=== PATIENT | female | born 1990 | race Caucasian/White ===

== ENCOUNTER 2017-11-19 09:42 | Inpatient (IN) | payer OTHER ==
[2017-11-19] MEDS: IV RINGERS,LACTATED 1000ML 1,000 ML IV ×2 (10:58→20:45)
[2017-11-19] MEDS: oxyCODONE/APAP 5/325 1 TAB TABLET PO ×2 (11:47→21:14)
[2017-11-19] MEDS: PANTOPRAZOLE IV PUSH 40 MG VIAL. IVP (14:53)
[2017-11-19] MEDS: IBUPROFEN 800 MG TABLET. PO (15:42)
[2017-11-20] MEDS: IBUPROFEN 800 MG TABLET. PO ×3 (00:07→21:19)
[2017-11-20] MEDS: oxyCODONE/APAP 5/325 1 TAB TABLET PO ×3 (01:29→20:06)
[2017-11-20] MEDS: PANTOPRAZOLE IV PUSH 40 MG VIAL. IVP (07:28)
[2017-11-20] MEDS: ONDANSETRON PF 4 MG/2 ML VIAL. IV ×2 (08:11→18:24)
[2017-11-20] MEDS: IV RINGERS,LACTATED 1000ML 1,000 ML IV (19:52)
[2017-11-20] MEDS: METOCLOPRAMIDE HCL 10 MG/2 ML VIAL. IV (21:19)
[2017-11-21] MEDS: IV RINGERS,LACTATED 1000ML 1,000 ML IV ×4 (04:46→15:30)
[2017-11-21] MEDS ORDERED: MORPHINE SULFATE 2 MG/ML DISP.SYRIN. IV (07:00)
[2017-11-21] MEDS ORDERED: fentaNYL PF VIAL 100 MCG/2 ML VIAL IV (07:00)
[2017-11-21] MEDS ORDERED: LIDOCAINE 1% PF 2 ML VIAL. ID (07:00)
[2017-11-21] MEDS ORDERED: ONDANSETRON PF 4 MG/2 ML VIAL. IV (07:00)
[2017-11-21] MEDS ORDERED: HYDROmorphone 2 MG/ML VIAL IV (07:00)
[2017-11-21] MEDS: oxyCODONE/APAP 5/325 1 TAB TABLET PO ×4 (07:13→23:39)
[2017-11-21] MEDS: PANTOPRAZOLE IV PUSH 40 MG VIAL. IVP (08:28)
[2017-11-21] MEDS ORDERED: LIDOCAINE 1% PF 5 ML VIAL. (09:35)
[2017-11-21] MEDS ORDERED: PROPOFOL 20 ML IV (09:35)
[2017-11-21] MEDS ORDERED: FAMOTIDINE 20 MG/2 ML VIAL (09:35)
[2017-11-21] MEDS ORDERED: DEXAMETHASONE SOD PHOS 20 MG/5 ML VIAL. (09:35)
[2017-11-21] MEDS ORDERED: ONDANSETRON PF 4 MG/2 ML VIAL. (09:35)
[2017-11-21] MEDS ORDERED: ROCURONIUM 50 MG/5 ML VIAL. (09:36)
[2017-11-21] MEDS ORDERED: SUCCINYLCHOLINE 200 MG/10 ML VIAL. (09:36)
[2017-11-21] MEDS ORDERED: fentaNYL PF VIAL 100 MCG/2 ML VIAL ×2 (09:36→11:18)
[2017-11-21] MEDS ORDERED: PHENYLEPHRINE 10 MG/ML VIAL. (10:48)
[2017-11-21] MEDS ORDERED: NEOSTIGMINE 10 MG/10 ML VIAL. (10:49)
[2017-11-21] MEDS: BUPIVACAINE-EPI 0.25%-1:200000 50 ML VIAL. (10:49)
[2017-11-21] MEDS ORDERED: GLYCOPYRROLATE 1 MG/5 ML VIAL. (10:50)
[2017-11-21] MEDS: fentaNYL PF VIAL 100 MCG/2 ML VIAL IV ×2 (11:53→12:16)
[2017-11-21] MEDS: ONDANSETRON PF 4 MG/2 ML VIAL. IV (13:42)
[2017-11-21] MEDS: METOCLOPRAMIDE HCL 10 MG/2 ML VIAL. IV (15:58)
[2017-11-21] MEDS: IBUPROFEN 800 MG TABLET. PO (21:57)
[2017-11-22] MEDS: IBUPROFEN 800 MG TABLET. PO (06:15)
[2017-11-22] MEDS: oxyCODONE/APAP 5/325 1 TAB TABLET PO ×2 (07:35→12:23)
== END 2017-11-22 13:05 | disposition home or self-care (01) | DRG 781 ==
LOC: 3 NORTH 09:42
PROC: 0FT44ZZ Resection of Gallbladder, Percutaneous Endoscopic Approach (ICD-10-PCS; principal; 2017-11-21 10:30)
DX: O99.611 Diseases of the digestive system complicating pregnancy, first trimester (principal); K80.00 Calculus of gallbladder with acute cholecystitis without obstruction; Z3A.01 Less than 8 weeks gestation of pregnancy
CPT/HCPCS: 76815; 88304; C9113; J0330; J0690; J1100; J2405; J2704; J2710; J2765; J3010; J3490; J7030; J7120; S0028

== ENCOUNTER → 2018-02-12 | Outpatient (CLI) | payer OTHER | END | disposition home or self-care (01) | LOC: US 06:40 | DX: O44.02 Complete placenta previa NOS or without hemorrhage, second trimester (principal); Z3A.21 21 weeks gestation of pregnancy | CPT/HCPCS: 76805 ==

== ENCOUNTER 2018-03-16 02:47 | Observation (INO) | payer OTHER ==
[2018-03-16] MEDS ORDERED: 0.9 % SODIUM CHLORIDE 10 ML DISP.SYRIN. IV (03:00)
[2018-03-16 03:26] LABS: BILIRUBIN,URINE NEGATIVE (NEG); CLARITY,URINE CLEAR; COLOR,URINE YELLOW; GLUCOSE,URINE NEGATIVE (NEG); NITRITE,URINE NEGATIVE (NEG); PROTEIN,URINE NEGATIVE (NEG-TRACE); UROBILINOGEN,URINE 0.2 mg/dL (0.2 mg/dL)
[2018-03-16 03:31] LABS: BARBITURATES NEG (NEG); BENZODIAZEPINES NEG (NEG); CANNABINOIDS NEG (NEG); COCAINE NEG (NEG); METHADONE NEG (NEG); OPIATES NEG (NEG); PHENCYCLIDINE NEG (NEG)
[2018-03-16 03:32] LABS: AMPHETAMINE/METHAMPHETAMINE NEG (NEG); ETHANOL, URINE NEG (NEG)
[2018-03-16 03:34] LABS: BACTERIA,URINE FEW /HPF (0-FEW); RBC,URINE 0 /HPF (0-2); SQUAMOUS EPITHELIAL CELL,UR FEW /LPF
== END 2018-03-16 04:22 | disposition home or self-care (01) ==
LOC: 3 SO LND 02:47
DX: O26.892 Other specified pregnancy related conditions, second trimester (principal); R10.9 Unspecified abdominal pain; Z79.899 Other long term (current) drug therapy; Z3A.24 24 weeks gestation of pregnancy
CPT/HCPCS: 80307; 81001; G0378; G0379

== ENCOUNTER → 2018-04-03 | Outpatient (CLI) | payer OTHER ==
[2018-04-03 11:20] LABS: ADD MAN DIFF? NO
[2018-04-03 11:38] LABS: GLUCOSE 75 mg/dL (70-99)
[2018-04-03 11:43] LABS: BASO % 0 % (0-3); EOS # 0.1 x10^3/uL (0.0-0.7); EOS % 1 % (0-3); HEMATOCRIT 36.5 % (36.0-47.0); HEMOGLOBIN 12.9 g/dL (12.0-15.5); LYMPH # 2.4 x10^3/uL (1.0-4.8); LYMPH % 25 % (24-48); MEAN CORPUSCULAR HEMOGLOBIN 33 pg (25-35); MEAN CORPUSCULAR HGB CONC 35 g/dL (31-37); MEAN CORPUSCULAR VOLUME 93 fL (79-100); MONO # 0.6 x10^3/uL (0.0-1.1); MONO % 7 % (0-9); NEUT # 6.3 x10^3uL (1.8-7.7); NEUT % 67 % (31-73); PLATELET COUNT 183 x10^3/uL (140-400); RED BLOOD COUNT 3.92 x10^6/uL (3.50-5.40); RED CELL DISTRIBUTION WIDTH 12.7 % (11.5-14.5); WHITE BLOOD COUNT 9.4 x10^3/uL (4.0-11.0)
[2018-04-03 13:19] LABS: SECOND ABO/RH TYPE 1 1
== END | disposition home or self-care (01) ==
LOC: LAB 11:04
DX: O09.92 Supervision of high risk pregnancy, unspecified, second trimester (principal); Z3A.28 28 weeks gestation of pregnancy
CPT/HCPCS: 36415; 82947; 82950; 85025; 86850; 86900; 86901; J2791

== ENCOUNTER → 2018-04-17 | Outpatient (CLI) | payer OTHER ==
[2017-11-22 12:55] VITALS: BP 109/68
--- NOTE | 2018-04-17 13:16 | KCIC ---
OB ULTRASOUND, limited Clinical Indication: Placenta previa on prior study. Comparison: Obstetric ultrasound, greater than 14 weeks February 12, 2018. Technique: Multiple grayscale images, color Doppler, and M-mode images of the uterus are obtained. Findings: There is a single intrauterine gestation in transverse presentation. The placenta is anterior in location. The edge of the placenta is less than a centimeter from the internal cervical os. The amount of amniotic fluid appears appropriate. Amniotic fluid index is 10.8 cm. Cervical length is 3.8 cm. Biometrical data: BPD = 7.3 cm for 29 weeks 3 days. HC = 26.2 cm for 28 weeks 3 days. AC = 24.5 cm for 28 weeks 5 days. FL = 5.4 cm for 28 weeks 4 days. HC/AC ratio = 1.07. Overall, the estimated sonographic gestational age is 28 weeks and 6 days for an estimated date of delivery of July 04, 2018. The estimated date of delivery provided by the last ultrasound is 07/07/2018. Estimated weight is 1272 grams. The estimated heart rate is 135 beats per minute. A anatomic survey is not performed due to advanced gestational age. Impression: 1. Single live intrauterine gestation with estimated sonographic gestational age of 28 weeks and 6 days. 2. The placenta is at least low-lying. Recommend transvaginal scanning for more definitive evaluation. Electronically signed by: Oswaldo Lamb MD (04/17/2018 1:13 PM) [id number]
== END | disposition home or self-care (01) ==
LOC: KCIC US 10:04
PROVIDERS: ATTEND Physician Assistant Medical
DX: Z36.89 Encounter for other specified antenatal screening (principal); Z3A.28 28 weeks gestation of pregnancy
CPT/HCPCS: 76815

== ENCOUNTER 2018-04-22 15:26 | Observation (INO) | payer OTHER ==
[2017-11-22 12:55] VITALS: BP 109/68
[2018-04-22 15:52] LABS: BILIRUBIN,URINE NEGATIVE (NEG); CLARITY,URINE CLEAR; NITRITE,URINE NEGATIVE (NEG); PH,URINE 7.5; PROTEIN,URINE NEGATIVE (NEG-TRACE); UROBILINOGEN,URINE 0.2 mg/dL (0.2 mg/dL)
[2018-04-22 15:59] LABS: COLOR,URINE STRAW
[2018-04-22 16:00] LABS: RBC,URINE 0 /HPF (0-2)
[2018-04-22 16:01] LABS: BACTERIA,URINE 0 /HPF (0-FEW); SQUAMOUS EPITHELIAL CELL,UR FEW /LPF; WBC,URINE 0 /HPF (0-4)
== END 2018-04-22 16:52 | disposition home or self-care (01) ==
LOC: 3 SO LND 15:26
PROVIDERS: ADMIT Obstetrics & Gynecology; ATTEND Obstetrics & Gynecology
DX: O36.8130 Decreased fetal movements, third trimester, not applicable or unspecified (principal); O26.893 Other specified pregnancy related conditions, third trimester; R10.9 Unspecified abdominal pain; Z3A.29 29 weeks gestation of pregnancy
CPT/HCPCS: 81001; G0378; G0379

== ENCOUNTER 2018-06-04 04:15 | Inpatient (IN) | payer OTHER ==
[~2018-06-04] VITALS: Ht 170.2 cm; Wt 63.5 kg
[2018-06-04] MEDS ORDERED: IV RINGERS,LACTATED 1000ML 1,000 ML IV PRN (04:30)
[2018-06-04] MEDS ORDERED: ACETAMINOPHEN 325 MG TABLET. PO PRN (04:30)
--- NOTE | 2018-06-04 04:38 | PDOC1 ---
OB - History Hx of Present Care: Good Care Ultrasounds: Abnormal US findings (Marginal previa) Medical Complications: None Past Family/Social History * Past Medical, Surgical, Family and Obstetric Histories reviewed from chart. Blood Type: Unknown Rubella: Immune RPR/VDRL: Negative GBS Status: Unknown HBsAG: Negative OB - Chief Complaint & HPI Date of Admission: Date of Admission: Jun 04, 2018 at 04:15 Chief Complaint/History : 7 EDC: Jul 07, 2018 Reason for admission: active labor, labor, rupture of membranes Indication for : other (marginal previa) Admission Nurse Assessment Rev: Yes OB - Admission Exam Physical Exam HEENT: Normal, Nasal Mucosa Normal, Oropharynx Normal, Moist Membranes, Fontanelles Normal Heart: Regular Rate Lungs: Clear Abdomen: Gravid Extremities: Normal Pulses, No tenderness or swelling Effacement: 0% Membranes: Ruptured Heart Rate: Normal Accelerations: Accelerations Present Decelerations: No decelerations Short Term Variability: Present Contractions on Admission: 6-10 Minutes Apart Intensity: Moderate Assessment/Plan Assessment/Plan 35/2 week Marginal previa PPROM Bleeding C/S EMILIANO NEIL MD Jun 04, 2018 04:38
[2018-06-04] MEDS ORDERED: ONDANSETRON PF 4 MG/2 ML VIAL. IV PRN ×2 (04:45→06:00)
[2018-06-04] MEDS ORDERED: SIMETHICONE 80 MG TAB.CHEW PO PRN ×2 (04:45→06:00)
[2018-06-04] MEDS ORDERED: oxyCODONE/APAP 5/325 1 TAB TABLET PO PRN ×2 (04:45)
[2018-06-04] MEDS ORDERED: MMR per PROTOCOL. MC PRN (04:45)
[2018-06-04] MEDS ORDERED: MAG HYDROX/ALUMINUM HYD/SIMETH 30 ML ORAL.SUSP PO PRN ×2 (04:45→06:00)
[2018-06-04] MEDS ORDERED: ZOLPIDEM 5 MG TABLET. PO PRN ×2 (04:45→06:00)
[2018-06-04] MEDS ORDERED: diphenhydrAMINE ORAL ELIXIR 12.5 MG/5 ML ML PO PRN ×2 (04:45→06:00)
[2018-06-04] MEDS ORDERED: OXYTOCIN 30 UNIT/500 ML PREMIX 500 ML IV PRN ×2 (04:45→06:00)
[2018-06-04] MEDS ORDERED: DOCUSATE SODIUM 100 MG CAPSULE. PO PRN (04:45)
[2018-06-04 04:57] LABS: HEMATOCRIT 34.3 % (36.0-47.0); HEMOGLOBIN 12.2 g/dL (12.0-15.5); RED BLOOD COUNT 3.82 x10^6/uL (3.50-5.40); RED CELL DISTRIBUTION WIDTH 13.2 % (11.5-14.5); WHITE BLOOD COUNT 10.4 x10^3/uL (4.0-11.0)
[2018-06-04] MEDS ORDERED: 0.9 % SODIUM CHLORIDE 10 ML DISP.SYRIN. IV PRN ×2 (05:00→06:00)
[2018-06-04] MEDS ORDERED: ceFAZolin 2GM PREMIX 2 GM/50 ML BAG IV ONE (05:00)
--- NOTE | 2018-06-04 05:46 | PDOC4 ---
OB Operative Note Date: Jun 04, 2018 PRE OP DIAGNOSIS: Other (Partial Placenta Previa with PPROM and bleeding at 35 wks) POST OP DIAGNOSIS: Other (Same + complete previa) OPERATION PERFORMED: Durga [facility] Surgeon Dr. Campos [employer] Administrator Dr. Bonds Anesthesia: Gen Blood Loss 1, 000 ml Specimen placenta and OB Findings: Position (Transverse), Sex (Male), (8/9), Weight (6 Lb 6 oz. ), Fluid (Clear), Urgency (Emergent) Complications complete placenta previa Additional Remarks pt. MERY Velasquez Jr, MD Jun 04, 2018 05:46
[2018-06-04] MEDS ORDERED: MORPHINE SULFATE 10 MG/ML VIAL. ONE ×2 (05:47→06:00)
[2018-06-04] MEDS ORDERED: FAMOTIDINE 20 MG/2 ML VIAL ONE (05:49)
[2018-06-04] MEDS ORDERED: OXYTOCIN 10 UNIT/ML VIAL. ONE (05:49)
[2018-06-04] MEDS ORDERED: ONDANSETRON PF 4 MG/2 ML VIAL. ONE (05:49)
[2018-06-04] MEDS ORDERED: fentaNYL PF VIAL 100 MCG/2 ML VIAL ONE (05:49)
[2018-06-04] MEDS: IV RINGERS,LACTATED 1000ML 1,000 ML IV SCH ×3 (05:57→21:15)
[2018-06-04] MEDS ORDERED: KETOROLAC 30 MG/ML VIAL. IV PRN (06:00)
[2018-06-04] MEDS: IBUPROFEN 800 MG TABLET. PO SCH ×3 (06:00→22:39)
[2018-06-04] MEDS ORDERED: IBUPROFEN 800 MG TABLET. PO PRN (06:00)
[2018-06-04 08:00] VITALS: BP 107/68
[2018-06-04] MEDS: FERROUS SULFATE 325 MG TABLET. PO SCH ×2 (08:00→17:00)
[2018-06-04] MEDS ORDERED: FERROUS SULFATE 325 MG TABLET. PO SCH (08:00)
[2018-06-04 08:30] VITALS: BP 106/66
[2018-06-04 09:00] VITALS: BP 104/64
[2018-06-04] MEDS: METHYLERGONOVINE MALEATE 0.2 MG TABLET PO SCH ×3 (09:00→22:38)
--- NOTE | 2018-06-04 09:38 | OP ---
DATE OF SURGERY: 06/04/2018 Operative Note PREOPERATIVE DIAGNOSES: 1. A 35 weeks' intrauterine . 2. premature rupture of membranes. 3. Partial placenta previa. POSTOPERATIVE DIAGNOSES: 1. A 35 weeks' intrauterine . 2. premature rupture of membranes. 3. Complete placenta previa. PROCEDURE: Primary low transverse section. SURGEON: Mery Campos MD DRILLING CONTRACTOR: Kevon Bonds MD ANESTHESIA: GETA. ESTIMATED BLOOD LOSS: 1000 mL. COMPLICATIONS: Complete placenta previa. FINDINGS: Viable male infant, Apgars 8 and 9, weight 6 pounds 6 ounces. Three-vessel cord placenta, nuchal cord times 1. There was complete placenta previa. SUMMARY: A 27-year-old 3, para 2 at 35 weeks, presented with leaking of fluid and vaginal bleeding. The patient was found to have ruptured membranes and due to the placenta partial previa and prior section, she was counseled on risks, benefits and expectations of the emergent section and voiced a clear understanding to proceed. DESCRIPTION OF PROCEDURE: The patient was taken to surgery suite and placed in dorsal supine position. She was prepped with ChloraPrep and draped in a sterile fashion. After adequate anesthesia, a Pfannenstiel skin incision was made with scalpel down to and through the fascia. Fascia was extended laterally using blunt dissection. The abdominal rectus muscle dissected bluntly at the midline. The peritoneum was dissected bluntly at the midline as well. The Gerald ring retractor was placed. Low transverse hysterotomy incision was made with scalpel down to the amniotic sac. The hysterotomy incision extended laterally and superiorly. Amniotomy was performed bluntly. Placenta was anterior and extended all the way past the cervical os. The was transverse, rotated internally. With the aid of fundal pressure, the infant's head was delivered in a smooth atraumatic manner. With additional fundal pressure, the anterior shoulder was delivered by followed by posterior shoulder. Rest of the male was delivered. cord times 1 was reduced. was suctioned with bulb syringe orally and nasally. Umbilical was clamped twice and cut and viable male infant was handed to waiting nursing staff. Umbilical cord blood was obtained. Three-vessel cord placenta was delivered intact. Uterus exteriorized, cleared of clot and debris with a moist lap. Hysterotomy incision was reapproximated using 1-0 Vicryl suture in running locked fashion. Uterus palpated firm. Fallopian tubes and ovaries appeared normal bilaterally. Posterior cul-de-sac was cleared of clot and debris with a moist lap. The uterus was then returned to the abdomen. Pericolic gutters were cleared of clot and debris with a moist lap. Hysterotomy incision was reviewed and was hemostatic. Interceed was placed over the hysterotomy incision in inverted T fashion. The Gerald ring retractor was removed. The peritoneum was reapproximated using 1-0 Vicryl suture in a running fashion. Muscles were approximated abdominal rectus muscle reapproximated using a 1-0 Vicryl suture and mattress stitch. The fascia was reapproximated using 0 Vicryl suture in running fashion. Skin was reapproximated using 4-0 Vicryl suture in subcuticular manner. The patient tolerated the procedure well and was sent to recovery room in stable condition. Sponge and needle count correct times 3. MERY CAMPOS MD DR: DORIS/leticia JOB#: [id number] / [id number]
[2018-06-04 10:05] VITALS: BP 103/66
[2018-06-04] MEDS: ceFAZolin SODIUM 1 GM in IV DEXTROSE 5% 50 ML IV SCH ×2 (13:00→21:00)
[2018-06-04 13:10] VITALS: BP 102/64
[2018-06-04 19:35] VITALS: BP 108/69
[2018-06-05 00:03] VITALS: BP 99/65
[2018-06-05] MEDS: IV RINGERS,LACTATED 1000ML 1,000 ML IV SCH (05:00)
[2018-06-05 05:50] LABS: BASO # 0.1 x10^3/uL (0.0-0.2); BASO % 1 % (0-3); EOS # 0.1 x10^3/uL (0.0-0.7); EOS % 1 % (0-3); HEMATOCRIT 30.3 % (36.0-47.0); HEMOGLOBIN 10.6 g/dL (12.0-15.5); LYMPH % 20 % (24-48); MEAN CORPUSCULAR HEMOGLOBIN 32 pg (25-35); MEAN CORPUSCULAR HGB CONC 35 g/dL (31-37); MEAN CORPUSCULAR VOLUME 91 fL (79-100); MONO # 0.9 x10^3/uL (0.0-1.1); MONO % 9 % (0-9); NEUT # 7.1 x10^3uL (1.8-7.7); NEUT % 70 % (31-73); PLATELET COUNT 126 x10^3/uL (140-400); RED BLOOD COUNT 3.34 x10^6/uL (3.50-5.40); RED CELL DISTRIBUTION WIDTH 13.2 % (11.5-14.5); WHITE BLOOD COUNT 10.1 x10^3/uL (4.0-11.0)
[2018-06-05 06:15] VITALS: BP 108/73
[2018-06-05] MEDS: IBUPROFEN 800 MG TABLET. PO SCH ×3 (06:25→21:58)
[2018-06-05] MEDS: METHYLERGONOVINE MALEATE 0.2 MG TABLET PO SCH ×2 (09:44→14:00)
[2018-06-05 11:20] VITALS: BP 107/71
[2018-06-05] MEDS: oxyCODONE/APAP 5/325 1 TAB TABLET PO PRN ×3 (11:28→21:59)
[2018-06-05] MEDS: MAGNESIUM HYDROXIDE 2,400 MG/30 ML ORAL.SUSP. PO PRN (11:29)
--- NOTE | 2018-06-05 12:58 | PDOC ---
OB Progress Note Date of Service 06/05/18 Time of Evaluation 1255 Notes Pt. feeling well. Pain controlled. Lab Laboratory Tests Test 06/04/18 04:00 06/04/18 04:45 06/05/18 05:05 Treponema pallidum Antibody Nonreactive (Nonreactive) White Blood Count 10.4 x10^3/uL (4.0-11.0) 10.1 x10^3/uL (4.0-11.0) Red Blood Count 3.82 x10^6/uL (3.50-5.40) 3.34 x10^6/uL (3.50-5.40) Hemoglobin 12.2 g/dL (12.0-15.5) 10.6 g/dL (12.0-15.5) Hematocrit 34.3 % (36.0-47.0) 30.3 % (36.0-47.0) Mean Corpuscular Volume 90 fL (79-100) 91 fL (79-100) Mean Corpuscular Hemoglobin 32 pg (25-35) 32 pg (25-35) Mean Corpuscular Hemoglobin Concent 36 g/dL (31-37) 35 g/dL (31-37) Red Cell Distribution Width 13.2 % (11.5-14.5) 13.2 % (11.5-14.5) Platelet Count 161 x10^3/uL (140-400) 126 x10^3/uL (140-400) Neutrophils (%) (Auto) 70 % (31-73) Lymphocytes (%) (Auto) 20 % (24-48) Monocytes (%) (Auto) 9 % (0-9) Eosinophils (%) (Auto) 1 % (0-3) Basophils (%) (Auto) 1 % (0-3) Neutrophils # (Auto) 7.1 x10^3uL (1.8-7.7) Lymphocytes # (Auto) 2.0 x10^3/uL (1.0-4.8) Monocytes # (Auto) 0.9 x10^3/uL (0.0-1.1) Eosinophils # (Auto) 0.1 x10^3/uL (0.0-0.7) Basophils # (Auto) 0.1 x10^3/uL (0.0-0.2) Laboratory Tests Test 06/05/18 05:05 White Blood Count 10.1 x10^3/uL (4.0-11.0) Red Blood Count 3.34 x10^6/uL (3.50-5.40) Hemoglobin 10.6 g/dL (12.0-15.5) Hematocrit 30.3 % (36.0-47.0) Mean Corpuscular Volume 91 fL (79-100) Mean Corpuscular Hemoglobin 32 pg (25-35) Mean Corpuscular Hemoglobin Concent 35 g/dL (31-37) Red Cell Distribution Width 13.2 % (11.5-14.5) Platelet Count 126 x10^3/uL (140-400) Neutrophils (%) (Auto) 70 % (31-73) Lymphocytes (%) (Auto) 20 % (24-48) Monocytes (%) (Auto) 9 % (0-9) Eosinophils (%) (Auto) 1 % (0-3) Basophils (%) (Auto) 1 % (0-3) Neutrophils # (Auto) 7.1 x10^3uL (1.8-7.7) Lymphocytes # (Auto) 2.0 x10^3/uL (1.0-4.8) Monocytes # (Auto) 0.9 x10^3/uL (0.0-1.1) Eosinophils # (Auto) 0.1 x10^3/uL (0.0-0.7) Basophils # (Auto) 0.1 x10^3/uL (0.0-0.2) Medications Current Medications Sodium Chloride (Normal Saline Flush) 3 ml QSHIFT PRN IV AFTER MEDS AND BLOOD DRAWS; Start 06/04/18 at 05:00; Stop 06/04/18 at 06:22; Status DC Oxytocin/Sodium Chloride 500 ml @ 125 mls/hr CONT PRN IV EXCESSIVE POST- BLEEDING; Start 06/04/18 at 04:45; Stop 06/04/18 at 06:23; Status DC Ibuprofen (Motrin) 800 mg Q8HRS PO Last administered on 06/05/18at 06:25; Start 06/04/18 at 06:00 Ondansetron HCl (Zofran) 4 mg PRN Q6HRS PRN IV NAUSEA/VOMITING; Start 06/04/18 at 04:45; Stop 06/04/18 at 06:23; Status DC Docusate Sodium (Colace) 100 mg PRN BID PRN PO HARD STOOLS; Start 06/04/18 at 04:45; Stop 06/04/18 at 06:21; Status DC Magnesium Hydroxide (Milk Of Magnesia) 2,400 mg PRN DAILY PRN PO CONSTIPATION Last administered on 06/05/18at 11:29; Start 06/04/18 at 04:45 Al Hydroxide/Mg Hydroxide (Mylanta Plus Xs) 30 ml PRN Q4HRS PRN PO HEARTBURN / GAS; Start 06/04/18 at 04:45; Stop 06/04/18 at 06:22; Status DC Simethicone (Gas-X) 80 mg PRN AFTMEALHC PRN PO GAS / BLOATING; Start 06/04/18 at 04:45; Status Cancel Diphenhydramine HCl (Benadryl Oral Elixir) 12.5 mg PRN Q6HRS PRN PO ITCHING; Start 06/04/18 at 04:45; Status Cancel Ferrous Sulfate (Feosol) 325 mg BIDWMEALS PO ; Start 06/04/18 at 08:00; Stop at 08:00; Status DC Zolpidem Tartrate (Ambien) 5 mg PRN QHS PRN PO INSOMNIA, MAY REPEAT X1; Start 06/04/18 at 04:45; Stop 06/04/18 at 06:23; Status DC Info (Do NOT chart on this placeholder) 1 ea PRN 1X PRN MC SEE COMMENTS; Start 06/04/18 at 04:45 Info (Do NOT chart on this placeholder) 1 ea PRN 1X PRN MC SEE COMMENTS; Start 06/04/18 at 04:45 Oxycodone/ Acetaminophen (Percocet 5/325) 1 tab PRN Q4HRS PRN PO MILD PAIN; Start 06/04/18 at 04:45 Oxycodone/ Acetaminophen (Percocet 5/325) 2 tab PRN Q4HRS PRN PO MODERATE PAIN , SEVERE PAIN; Start 06/04/18 at 04:45; Stop 06/04/18 at 06:22; Status DC Cefazolin Sodium 1 gm/Dextrose 50 ml @ 100 mls/hr Q8H IV ; Start 06/04/18 at 13 :00; Stop 06/04/18 at 22:50; Status DC Ringer's Solution 1,000 ml @ 1,000 mls/hr Q1H PRN IV hydration; Start 06/04/18 at 04:30 Ringer's Solution 1,000 ml @ 125 mls/hr Q8H IV Last administered on 06/04/18at 21:15; Start 06/04/18 at 05:00 Cefazolin Sodium/ Dextrose 50 ml @ 100 mls/hr 1X ONCE IV ; Start 06/04/18 at 05:00; Stop 06/04/18 at 05:29; Status DC Acetaminophen (Tylenol) 650 mg 1X PRN PRN PO PRE-TRANSFUSION; Start 06/04/18 at 04:30 Morphine Sulfate (Morphine Sulfate) 10 mg STK-MED ONCE .ROUTE ; Start 06/04/18 at 05:47; Stop 06/04/18 at 05:48; Status DC Sodium Chloride (Normal Saline Flush) 3 ml QSHIFT PRN IV AFTER MEDS AND BLOOD DRAWS; Start 06/04/18 at 06:00 Oxytocin/Sodium Chloride 500 ml @ 125 mls/hr CONT PRN IV EXCESSIVE POST- BLEEDING Last administered on 06/04/18at 06:24; Start 06/04/18 at 06:00; Stop 06/04/18 at 13:59; Status DC Ibuprofen (Motrin) 800 mg PRN Q8HRS PRN PO INFLAMMATION; Start 06/04/18 at 06: 00 Ondansetron HCl (Zofran) 4 mg PRN Q6HRS PRN IV NAUSEA/VOMITING Last administered on 06/04/18at 12:59; Start 06/04/18 at 06:00 Docusate Sodium (Colace) 100 mg PRN BID PRN PO HARD STOOLS; Start 06/04/18 at 06:00 Al Hydroxide/Mg Hydroxide (Mylanta Plus Xs) 30 ml PRN Q4HRS PRN PO HEARTBURN / GAS; Start 06/04/18 at 06:00 Simethicone (Gas-X) 80 mg PRN AFTMEALHC PRN PO GAS / BLOATING; Start 06/04/18 at 06:00 Diphenhydramine HCl (Benadryl Oral Elixir) 12.5 mg PRN Q6HRS PRN PO ITCHING; Start 06/04/18 at 06:00 Ferrous Sulfate (Feosol) 325 mg BIDWMEALS PO ; Start 06/04/18 at 08:00; Stop at 05:59; Status DC Zolpidem Tartrate (Ambien) 5 mg PRN QHS PRN PO INSOMNIA, MAY REPEAT X1; Start 06/04/18 at 06:00 Oxycodone/ Acetaminophen (Percocet 5/325) 2 tab PRN Q4HRS PRN PO MODERATE PAIN , SEVERE PAIN Last administered on 06/05/18at 11:28; Start 06/04/18 at 06:00 Ketorolac Tromethamine (Toradol 30mg Vial) 30 mg PRN Q6HRS PRN IV PAIN; Start 06/04/18 at 06:00; Stop 06/09/18 at 05:59 Hydromorphone HCl 30 ml @ 0 mls/hr CONT PRN PRN IV PAIN Last administered on at 07:32; Start 06/04/18 at 06:00 Methylergonovine Maleate (Methergine) 0.2 mg TID PO Last administered on at 09:44; Start 06/04/18 at 09:00; Stop 06/06/18 at 08:59 Famotidine (Pepcid Vial) 20 mg STK-MED ONCE .ROUTE ; Start 06/04/18 at 05:49; Stop 06/04/18 at 05:50; Status DC Ondansetron HCl (Zofran) 4 mg STK-MED ONCE .ROUTE ; Start 06/04/18 at 05:49; Stop 06/04/18 at 05:50; Status DC Oxytocin (Pitocin) 10 unit STK-MED ONCE .ROUTE ; Start 06/04/18 at 05:49; Stop 06/04/18 at 05:50; Status DC Fentanyl Citrate (Fentanyl 2ml Vial) 100 mcg STK-MED ONCE .ROUTE ; Start at 05:49; Stop 06/04/18 at 05:50; Status DC Morphine Sulfate (Morphine Sulfate) 10 mg STK-MED ONCE .ROUTE ; Start 06/04/18 at 06:00; Stop 06/04/18 at 09:02; Status DC Cefazolin Sodium/ Dextrose (Ancef 2gm Premix) 2 gm STK-MED ONCE IV ; Start 06/04 at 05:00; Stop 06/04/18 at 09:04; Status DC Exam Abd: soft, mild tenderness, fundus firm Incision site: clean, dry and intact Assessment POD#1 s/p c/s Plan of Care: Continue current Tx, Mgmt MERY BONNER Jr, MD Jun 05, 2018 12:58
[2018-06-05 15:39] VITALS: BP 121/78
[2018-06-05] MEDS ORDERED: BISACODYL 10 MG SUPP.RECT. PR PRN (18:15)
[2018-06-05] MEDS ORDERED: DIPHTH,PERTUSS(ACELL),TET TOX 0.5 ML DISP.SYRIN. VAX IM ONE (18:30)
[2018-06-05 20:10] VITALS: BP 100/66
[2018-06-05] MEDS: DOCUSATE SODIUM 100 MG CAPSULE. PO PRN (21:58)
[2018-06-06] MEDS: METHYLERGONOVINE MALEATE 0.2 MG TABLET PO SCH (00:10)
[2018-06-06] MEDS: IBUPROFEN 800 MG TABLET. PO SCH ×2 (05:50→15:13)
[2018-06-06] MEDS: MAGNESIUM HYDROXIDE 2,400 MG/30 ML ORAL.SUSP. PO PRN (05:50)
[2018-06-06] MEDS: DOCUSATE SODIUM 100 MG CAPSULE. PO PRN ×2 (05:50→19:38)
[2018-06-06] MEDS: oxyCODONE/APAP 5/325 1 TAB TABLET PO PRN ×4 (05:51→19:39)
[2018-06-06 06:09] VITALS: BP 113/70
[2018-06-06 10:14] VITALS: BP 100/69
[2018-06-06 15:30] VITALS: BP 107/73
--- NOTE | 2018-06-06 17:16 | PDOC ---
OB Progress Note Date of Service 06/06/18 Time of Evaluation 1705 Notes Pt. feeling well. Pt. reports good pain control. Lab Laboratory Tests Test 06/05/18 05:05 White Blood Count 10.1 x10^3/uL (4.0-11.0) Red Blood Count 3.34 x10^6/uL (3.50-5.40) Hemoglobin 10.6 g/dL (12.0-15.5) Hematocrit 30.3 % (36.0-47.0) Mean Corpuscular Volume 91 fL (79-100) Mean Corpuscular Hemoglobin 32 pg (25-35) Mean Corpuscular Hemoglobin Concent 35 g/dL (31-37) Red Cell Distribution Width 13.2 % (11.5-14.5) Platelet Count 126 x10^3/uL (140-400) Neutrophils (%) (Auto) 70 % (31-73) Lymphocytes (%) (Auto) 20 % (24-48) Monocytes (%) (Auto) 9 % (0-9) Eosinophils (%) (Auto) 1 % (0-3) Basophils (%) (Auto) 1 % (0-3) Neutrophils # (Auto) 7.1 x10^3uL (1.8-7.7) Lymphocytes # (Auto) 2.0 x10^3/uL (1.0-4.8) Monocytes # (Auto) 0.9 x10^3/uL (0.0-1.1) Eosinophils # (Auto) 0.1 x10^3/uL (0.0-0.7) Basophils # (Auto) 0.1 x10^3/uL (0.0-0.2) Medications Current Medications Sodium Chloride (Normal Saline Flush) 3 ml QSHIFT PRN IV AFTER MEDS AND BLOOD DRAWS; Start 06/04/18 at 05:00; Stop 06/04/18 at 06:22; Status DC Oxytocin/Sodium Chloride 500 ml @ 125 mls/hr CONT PRN IV EXCESSIVE POST- BLEEDING; Start 06/04/18 at 04:45; Stop 06/04/18 at 06:23; Status DC Ibuprofen (Motrin) 800 mg Q8HRS PO Last administered on 06/06/18at 15:13; Start 06/04/18 at 06:00 Ondansetron HCl (Zofran) 4 mg PRN Q6HRS PRN IV NAUSEA/VOMITING; Start 06/04/18 at 04:45; Stop 06/04/18 at 06:23; Status DC Docusate Sodium (Colace) 100 mg PRN BID PRN PO HARD STOOLS; Start 06/04/18 at 04:45; Stop 06/04/18 at 06:21; Status DC Magnesium Hydroxide (Milk Of Magnesia) 2,400 mg PRN DAILY PRN PO CONSTIPATION Last administered on 06/06/18at 05:50; Start 06/04/18 at 04:45 Al Hydroxide/Mg Hydroxide (Mylanta Plus Xs) 30 ml PRN Q4HRS PRN PO HEARTBURN / GAS; Start 06/04/18 at 04:45; Stop 06/04/18 at 06:22; Status DC Simethicone (Gas-X) 80 mg PRN AFTMEALHC PRN PO GAS / BLOATING; Start 06/04/18 at 04:45; Status Cancel Diphenhydramine HCl (Benadryl Oral Elixir) 12.5 mg PRN Q6HRS PRN PO ITCHING; Start 06/04/18 at 04:45; Status Cancel Ferrous Sulfate (Feosol) 325 mg BIDWMEALS PO ; Start 06/04/18 at 08:00; Stop at 08:00; Status DC Zolpidem Tartrate (Ambien) 5 mg PRN QHS PRN PO INSOMNIA, MAY REPEAT X1; Start 06/04/18 at 04:45; Stop 06/04/18 at 06:23; Status DC Info (Do NOT chart on this placeholder) 1 ea PRN 1X PRN MC SEE COMMENTS; Start 06/04/18 at 04:45 Info (Do NOT chart on this placeholder) 1 ea PRN 1X PRN MC SEE COMMENTS; Start 06/04/18 at 04:45 Oxycodone/ Acetaminophen (Percocet 5/325) 1 tab PRN Q4HRS PRN PO MILD PAIN; Start 06/04/18 at 04:45 Oxycodone/ Acetaminophen (Percocet 5/325) 2 tab PRN Q4HRS PRN PO MODERATE PAIN , SEVERE PAIN; Start 06/04/18 at 04:45; Stop 06/04/18 at 06:22; Status DC Cefazolin Sodium 1 gm/Dextrose 50 ml @ 100 mls/hr Q8H IV ; Start 06/04/18 at 13 :00; Stop 06/04/18 at 22:50; Status DC Ringer's Solution 1,000 ml @ 1,000 mls/hr Q1H PRN IV hydration; Start 06/04/18 at 04:30; Stop 06/05/18 at 17:50; Status DC Ringer's Solution 1,000 ml @ 125 mls/hr Q8H IV Last administered on 06/04/18at 21:15; Start 06/04/18 at 05:00; Stop 06/05/18 at 17:50; Status DC Cefazolin Sodium/ Dextrose 50 ml @ 100 mls/hr 1X ONCE IV ; Start 06/04/18 at 05:00; Stop 06/04/18 at 05:29; Status DC Acetaminophen (Tylenol) 650 mg 1X PRN PRN PO PRE-TRANSFUSION; Start 06/04/18 at 04:30 Morphine Sulfate (Morphine Sulfate) 10 mg STK-MED ONCE .ROUTE ; Start 06/04/18 at 05:47; Stop 06/04/18 at 05:48; Status DC Sodium Chloride (Normal Saline Flush) 3 ml QSHIFT PRN IV AFTER MEDS AND BLOOD DRAWS; Start 06/04/18 at 06:00; Stop 06/05/18 at 17:50; Status DC Oxytocin/Sodium Chloride 500 ml @ 125 mls/hr CONT PRN IV EXCESSIVE POST- BLEEDING Last administered on 06/04/18at 06:24; Start 06/04/18 at 06:00; Stop 06/04/18 at 13:59; Status DC Ibuprofen (Motrin) 800 mg PRN Q8HRS PRN PO INFLAMMATION; Start 06/04/18 at 06: 00 Ondansetron HCl (Zofran) 4 mg PRN Q6HRS PRN IV NAUSEA/VOMITING Last administered on 06/04/18at 12:59; Start 06/04/18 at 06:00 Docusate Sodium (Colace) 100 mg PRN BID PRN PO HARD STOOLS Last administered on 06/06/18at 05:50; Start 06/04/18 at 06:00 Al Hydroxide/Mg Hydroxide (Mylanta Plus Xs) 30 ml PRN Q4HRS PRN PO HEARTBURN / GAS; Start 06/04/18 at 06:00 Simethicone (Gas-X) 80 mg PRN AFTMEALHC PRN PO GAS / BLOATING; Start 06/04/18 at 06:00 Diphenhydramine HCl (Benadryl Oral Elixir) 12.5 mg PRN Q6HRS PRN PO ITCHING; Start 06/04/18 at 06:00 Ferrous Sulfate (Feosol) 325 mg BIDWMEALS PO ; Start 06/04/18 at 08:00; Stop at 05:59; Status DC Zolpidem Tartrate (Ambien) 5 mg PRN QHS PRN PO INSOMNIA, MAY REPEAT X1; Start 06/04/18 at 06:00 Oxycodone/ Acetaminophen (Percocet 5/325) 2 tab PRN Q4HRS PRN PO MODERATE PAIN , SEVERE PAIN Last administered on 06/06/18at 14:07; Start 06/04/18 at 06:00 Ketorolac Tromethamine (Toradol 30mg Vial) 30 mg PRN Q6HRS PRN IV PAIN; Start 06/04/18 at 06:00; Stop 06/09/18 at 05:59 Hydromorphone HCl 30 ml @ 0 mls/hr CONT PRN PRN IV PAIN Last administered on at 07:32; Start 06/04/18 at 06:00; Stop 06/05/18 at 17:50; Status DC Methylergonovine Maleate (Methergine) 0.2 mg TID PO Last administered on at 00:10; Start 06/04/18 at 09:00; Stop 06/06/18 at 08:59; Status DC Famotidine (Pepcid Vial) 20 mg STK-MED ONCE .ROUTE ; Start 06/04/18 at 05:49; Stop 06/04/18 at 05:50; Status DC Ondansetron HCl (Zofran) 4 mg STK-MED ONCE .ROUTE ; Start 06/04/18 at 05:49; Stop 06/04/18 at 05:50; Status DC Oxytocin (Pitocin) 10 unit STK-MED ONCE .ROUTE ; Start 06/04/18 at 05:49; Stop 06/04/18 at 05:50; Status DC Fentanyl Citrate (Fentanyl 2ml Vial) 100 mcg STK-MED ONCE .ROUTE ; Start at 05:49; Stop 06/04/18 at 05:50; Status DC Morphine Sulfate (Morphine Sulfate) 10 mg STK-MED ONCE .ROUTE ; Start 06/04/18 at 06:00; Stop 06/04/18 at 09:02; Status DC Cefazolin Sodium/ Dextrose (Ancef 2gm Premix) 2 gm STK-MED ONCE IV ; Start 06/04 at 05:00; Stop 06/04/18 at 09:04; Status DC Diphtheria/ Tetanus/Acell Pertussis (Boostrix) 0.5 ml ONCE ONCE VAX IM Last administered on 06/05/18at 22:01; Start 06/05/18 at 18:30; Stop 06/05/18 at 18:31 ; Status DC Bisacodyl (Dulcolax Supp) 10 mg PRN DAILY PRN DE CONSTIPATION Last administered on 06/06/18at 10:53; Start 06/05/18 at 18:15 Exam Abd: soft, mild tenderness, fundus firm Incision site: clean, dry intact. Assessment POD#2 s/p c/s Plan of Care: Continue current Tx, Mgmt MERY BONNER Jr, MD Jun 06, 2018 17:16
[2018-06-06 19:40] VITALS: BP 115/69
[2018-06-07] MEDS: DOCUSATE SODIUM 100 MG CAPSULE. PO PRN (06:13)
[2018-06-07] MEDS: IBUPROFEN 800 MG TABLET. PO SCH (06:14)
[2018-06-07] MEDS: MAGNESIUM HYDROXIDE 2,400 MG/30 ML ORAL.SUSP. PO PRN (06:14)
[2018-06-07 06:15] VITALS: BP 112/69
--- NOTE | 2018-06-07 10:34 | PDOC3 ---
OB DISCHARGE SUMMARY DATE OF ADMISSION: 06/04/18 DATE OF DISCHARGE: 06/07/18 REASON FOR ADMISSION: PPROM, Vaginal bleeding (partial placenta previa) INTRAPARTUM PROCEDURES: : Low Cerv Trans OPERATIONS: None DISCHARGE DIAGNOSIS: Placenta Previa (PPROM with active bleeding) DISCHARGE INFORMATION: Activity (ad siobhan), Diet (regular), Instructions (pelvic rest x 6 wks, no driving x 2 wks, and no lifting > 20 lbs. x 4 wks) HOSPITAL COURSE PPROM with active bleeding required emergent c/s. No complications from procedure. MERY BONNER Jr, MD Jun 07, 2018 10:34
--- NOTE | 2018-06-07 10:35 | DISCH ---
DISCHARGE INSTRUCTIONS Condition on Discharge Condition on Discharge: Stable Activity After Discharge Activity Instructions for Disc: Activity as tolerated Lifting Instructions after Dis: No heavy lifting Driving Instructions after Dis: No driving for 2 weeks Diet after Discharge Diet after Discharge: Regular Contacting the DRJustin after DC Call your doctor for: Concerns you may have Follow-Up Follow up with: Dr. Campos in 2 wks MERY CAMPOS Jr, MD Jun 07, 2018 10:35
[2018-06-07] MEDS ORDERED: OXYC1TAB7 PO (10:37)
[2018-06-07] MEDS ORDERED: IBUP800T19 PO (10:37)
[2018-06-07] MEDS ORDERED: DOCU-109 PO (10:37)
[2018-06-07 13:00] VITALS: BP 111/66
--- NOTE | 2018-06-08 09:11 | PATHOLOGY ---
[facility] Accession Number: [id number] . 01 Material submitted: . PLACENTA AND CORD . 01 Clinician provided ICD-10: O82 . 01 Clinical history: . Placenta previa; EDC 06/30-SROM; (emergency); Apgars 8, 8; gestational age 35 weeks . 02 Diagnosis: 483 gram late placenta of an estimated 35 weeks gestation with attached membranes and umbilical cord: - Focal disruption of placental disc. See comment. LBQ/06/07/2018 . 02 Comment: There are no specific histologic features associated with placenta previa. Placenta previa is often accompanied by a marginal retroplacental hematoma, which is not identified in this case. There is no evidence of an acute chorioamnionitis or villitis. There are no infarcts. (JPM/db; 06/07/18) . 02 Electronically signed: . Attila High MD, Pathologist NPI- [id number] . 01 Gross description: . The specimen is received in formalin, labeled "Johanna Jay," and additionally labeled on the requisition as, "placenta and cord". Received is an ovoid, previously torn barros placenta with attached membranes and umbilical cord weighing 483 grams and measuring 23.2 x 17.1 x 2.8 cm in greatest dimensions. The membranes are pale leon and translucent in appearance and the site of membrane rupture cannot be determined. The surface is moderately disrupted in appearance and displays a normal arborizing vasculature pattern. The 3 vessel umbilical cord measures 41.4 cm in length by 1.5 cm in diameter and inserts eccentrically, 6.1 cm from the closest placental margin. The umbilical cord is white-leon in appearance with moderate helical twisting. The maternal surface is moderately disrupted in appearance; a slight amount of adherent blood coagulum is seen on the surface. Sectioning reveals light leon to red-brown cut surfaces with no grossly distinct nodules or lesions. The specimen is submitted representatively as follows: . A1 umbilical cord and surface vessels A2 membrane roll and peripheral placental segment A3 full-thickness placental cross-section A4-A5 sales representative consultant sections from disrupted area on maternal surface. (CAA; 06/06/2018) QAC/QAC . 02 Pathologist provided ICD-10: O43.893, O82, Z37.0, Z3A.35 . 02 CPT . 294520 Specimen Comment: A courtesy copy of this report has been sent to Specimen Comment: [phone], , . Specimen Comment: Report sent to , and Performed at: 01 [facility] [address] [facility] [address], [place] [id number] MD Leonardo Taylor MD Phone: [phone] Performed at: 02 [facility] [address] [place], [place] [id number] MD Attila High MD Phone: [phone]
== END 2018-06-07 14:30 | disposition home or self-care (01) | DRG 765 ==
LOC: 3 SO LND 04:15 → 3 NORTH 08:00
PROVIDERS: ADMIT Obstetrics & Gynecology; ATTEND Obstetrics & Gynecology
PROC: 10D00Z1 Extraction of Products of Conception, Low, Open Approach (ICD-10-PCS; principal; 2018-06-04)
DX: O60.14X0 Preterm labor third trimester with preterm delivery third trimester, not applicable or unspecified (principal); O44.13 Complete placenta previa with hemorrhage, third trimester; O69.81X0 Labor and delivery complicated by cord around neck, without compression, not applicable or unspecified; O42.913 Preterm premature rupture of membranes, unspecified as to length of time between rupture and onset of labor, third trimester; Z3A.35 35 weeks gestation of pregnancy; Z37.0 Single live birth
CPT/HCPCS: 36415; 85025; 85027; 86592; 86850; 86900; 86901; 86920; 88307; 90715; C1781; J0690; J1170; J2270; J2405; J2590; J3010; J7120; S0028

== ENCOUNTER 2020-05-25 14:04 | Observation (INO) | payer OTHER ==
[~2020-05-25 14:04] MED LIST: DOCU-109 PO; IBUP800T19 PO; OXYC1TAB7 PO
[2020-05-25] MEDS: IV RINGERS,LACTATED 1000ML 1,000 ML IV SCH ×2 (14:10→16:18)
[2020-05-25 14:34] LABS: BILIRUBIN,URINE NEGATIVE (NEG); CLARITY,URINE CLEAR; COLOR,URINE YELLOW; NITRITE,URINE NEGATIVE (NEG); PH,URINE 7.5 (<5.0-8.0); PROTEIN,URINE NEGATIVE (NEG-TRACE)
[2020-05-25 14:40] LABS: SQUAMOUS EPITHELIAL CELL,UR MOD /LPF
[2020-05-25 14:41] LABS: AMORPHOUS SEDIMENT,UR PRESENT /HPF; BACTERIA,URINE FEW /HPF (0-FEW); RBC,URINE 0 /HPF (0-2)
[2020-05-25 15:23] LABS: BASO % 0 % (0-3); EOS % 0 % (0-3); HEMATOCRIT 36.2 % (36.0-47.0); HEMOGLOBIN 12.3 g/dL (12.0-15.5); LYMPH # 2.3 x10^3/uL (1.0-4.8); LYMPH % 20 % (24-48); MEAN CORPUSCULAR HEMOGLOBIN 30 pg (25-35); MEAN CORPUSCULAR HGB CONC 34 g/dL (31-37); MEAN CORPUSCULAR VOLUME 89 fL (79-100); MONO # 0.7 x10^3/uL (0.0-1.1); MONO % 6 % (0-9); NEUT # 8.5 x10^3/uL (1.8-7.7); NEUT % 74 % (31-73); PLATELET COUNT 144 x10^3/uL (140-400); RED BLOOD COUNT 4.07 x10^6/uL (3.50-5.40); RED CELL DISTRIBUTION WIDTH 13.1 % (11.5-14.5); WHITE BLOOD COUNT 11.5 x10^3/uL (4.0-11.0)
[2020-05-25 16:31] LABS: CALCIUM 8.7 mg/dL (8.5-10.1); CREATININE 0.7 mg/dL (0.6-1.0); GFR 98.9; POTASSIUM 3.9 mmol/L (3.5-5.1)
[2020-05-25 17:15] VITALS: BP 103/62
[2020-05-25] MEDS ORDERED: TERBUTALINE 1 MG/ML VIAL. SQ ONE (17:15)
== END 2020-05-25 19:55 | disposition home or self-care (01) ==
LOC: 3 SO LND 14:04
PROVIDERS: ADMIT Obstetrics & Gynecology; ATTEND Obstetrics & Gynecology
DX: O62.9 Abnormality of forces of labor, unspecified (principal); M54.5 Low back pain; R10.30 Lower abdominal pain, unspecified; N89.8 Other specified noninflammatory disorders of vagina; Z3A.32 32 weeks gestation of pregnancy
CPT/HCPCS: 36415; 80048; 81001; 85025; 87086; 96360; 96361; 96372; G0378; G0379; J3105; J7120

== ENCOUNTER → 2020-07-09 | Outpatient (CLI) | payer OTHER | LOC: LAB 13:36 | PROVIDERS: ATTEND Obstetrics & Gynecology | DX: Z01.812 Encounter for preprocedural laboratory examination (principal); Z20.828 Contact with and (suspected) exposure to other viral communicable diseases | CPT/HCPCS: U0003 ==

== ENCOUNTER → 2020-08-24 | Outpatient (CLI) | payer OTHER ==
[2020-07-12 12:10] VITALS: BP 113/48
[~2020-08-24] MED LIST changes: +OXYC1TAB15 PO; +PNV1TABL78 PO
== END ==
LOC: LAB 14:06
PROVIDERS: ATTEND Obstetrics & Gynecology
DX: Z01.812 Encounter for preprocedural laboratory examination (principal); Z20.828 Contact with and (suspected) exposure to other viral communicable diseases
CPT/HCPCS: C9803; U0003

== ENCOUNTER 2020-08-27 06:34 | Day surgery (SDC) | payer OTHER ==
[~2020-08-27 06:34] MED LIST changes: +BUPIVACAINE-EPI 0.25%-1:200000 MPF 30 ML VIAL. INJ ONE; +HYDROmorphone 2 MG/ML VIAL IVP PRN; +IV RINGERS,LACTATED 1000ML 1,000 ML IV SCH; -OXYC1TAB15 PO; +PROCHLORPERAZINE 10 MG/2 ML VIAL. IVP PRN; +fentaNYL PF VIAL 100 MCG/2 ML VIAL IVP PRN
[2020-08-27] MEDS ORDERED: IV RINGERS,LACTATED 1000ML 1,000 ML IV SCH ×2 (07:15→09:45)
[2020-08-27] MEDS ORDERED: KETOROLAC 30 MG/ML VIAL. ONE (07:47)
[2020-08-27] MEDS ORDERED: fentaNYL PF VIAL 100 MCG/2 ML VIAL ONE ×2 (07:47→08:49)
[2020-08-27] MEDS ORDERED: MIDAZOLAM HCL/PF 2 MG/2 ML VIAL. ONE (07:47)
[2020-08-27] MEDS ORDERED: ROCURONIUM 50 MG/5 ML VIAL. ONE (07:47)
[2020-08-27] MEDS ORDERED: SEVOFLURANE 31 TO 60 MINUTES. IH ONE (07:47)
[2020-08-27] MEDS ORDERED: DEXAMETHASONE SOD PHOS 4 MG/ML VIAL ONE (07:47)
[2020-08-27] MEDS ORDERED: ONDANSETRON PF 4 MG/2 ML VIAL. ONE ×2 (07:48→09:20)
[2020-08-27] MEDS ORDERED: PROPOFOL 10 MG/ML (20ML) VIAL. IV ONE (07:48)
[2020-08-27] MEDS ORDERED: LIDOCAINE 2% PF 5 ML VIAL. ONE (07:48)
[2020-08-27] MEDS ORDERED: NEOSTIGMINE 10 MG/10 ML VIAL. ONE (08:43)
[2020-08-27] MEDS ORDERED: GLYCOPYRROLATE 1 MG/5 ML VIAL. ONE (08:43)
[2020-08-27] MEDS ORDERED: NEOSTIGMINE METHYLSULFATE 5 MG/5 ML SYRINGE. ONE (08:44)
--- NOTE | 2020-08-27 08:56 | PDOC ---
BRIEF OPERATIVE NOTE Date: Aug 27, 2020 Pre-Op Diagnosis Sterilization Post-Op Diagnosis Same Procedure Performed [facility] BT Surgeon Dr. Campos Anesthesia Type: General Blood Loss 5 ml Specimens Obtained none Findings nml size uterus, nml fallopian tubes and ovaries jose cruz. Complications none Operative Note see dictation MERY CAMPOS Jr, MD Aug 27, 2020 08:56
--- NOTE | 2020-08-27 08:58 | DISCH ---
DISCHARGE INSTRUCTIONS Condition on Discharge Condition on Discharge: Stable Activity After Discharge Activity Instructions for Disc: Avoid exertion Lifting Instructions after Dis: No heavy lifting, No pulling or pushing, Do not lift >10 pounds Driving Instructions after Dis: Do not drive today Weight Bearing Status after Di: No restrictions Diet after Discharge Diet after Discharge: Regular Diet Texture: Regular Liquid Texture: Thin Liquid Swallowing Supervision: None needed Contacting the DRJustin after DC Call your doctor for: Concerns you may have Follow-Up Follow up with: Dr. Campos in 1 week. Treatment/Equipment after DC Adaptive Equipment Issued: None MERY CAMPOS Jr, MD Aug 27, 2020 08:58
[2020-08-27] MEDS: fentaNYL PF VIAL 100 MCG/2 ML VIAL IVP PRN ×2 (09:00→09:07)
--- NOTE | 2020-08-27 09:08 | OP ---
DATE OF SURGERY: 08/27/2020 PREOPERATIVE DIAGNOSIS: Sterilization. POSTOPERATIVE DIAGNOSIS: Sterilization. PROCEDURE: Laparoscopic BTL. SURGEON: Bj Campos M.D. ANESTHESIA: GETA. ESTIMATED BLOOD LOSS: Less than 5 mL. COMPLICATIONS: None. FINDINGS: Normal size uterus, normal fallopian tubes and ovaries bilaterally. SUMMARY: A 29-year-old female, desires permanent sterilization. She was counseled on the risks, benefits and expectations as well as the failure rate and voiced clear understanding to proceed. DESCRIPTION OF PROCEDURE: The patient was taken to surgery suite and placed in dorsal lithotomy position, was prepped with Betadine solution for vaginal prep and ChloraPrep for abdominal prep. After adequate anesthesia, bivalve speculum was placed vaginally. Anterior lip of the cervix grasped with single tooth tenaculum. Oro uterine manipulator was then placed. The bivalve speculum was removed. Attention was now placed on abdomen. A small transverse skin incision was made just below the umbilicus with a scalpel. The Veress needle was then placed through the infraumbilical incision site. The abdomen was allowed to insufflate up to 1.5 L CO2 gas. The Veress needle was then removed, 5 mm trocar was placed. The scope was placed. The uterus, fallopian tubes and ovaries appeared normal bilaterally. A second incision was made in the left lower quadrant with a scalpel in which an 8 mm trocar was placed. With the Filshie clip applicator, Filshie clip was applied to the isthmus region of the right fallopian tube, totally occluding the right fallopian tube. Same process took place with left adnexa. The trocars were then removed under direct visualization. The abdomen was allowed to deflate as much as possible along with mechanical manipulation. The 2 skin incisions were closed with 4-0 Vicryl suture in subcuticular manner. A 0.25% Marcaine with epinephrine was injected at each incision site. The patient tolerated the procedure well and was taken to recovery room in stable condition. Sponge and needle count correct x 3. BJ CAMPOS MD DR: DORIS/leticia JOB#: [id number] / [id number]
[2020-08-27] MEDS ORDERED: MORPHINE SULFATE 2 MG/ML VIAL. ONE (09:11)
[2020-08-27] MEDS ORDERED: OXYC1TAB15 PO (09:11)
[2020-08-27] MEDS: MORPHINE SULFATE 2 MG/ML VIAL. IVP PRN ×2 (09:12→09:35)
[2020-08-27] MEDS ORDERED: ONDANSETRON PF 4 MG/2 ML VIAL. IVP ONE (09:30)
[2020-08-27] MEDS ORDERED: oxyCODONE/APAP 5/325 1 TAB TABLET PO ONE (09:30)
[2020-08-27] MEDS ORDERED: PROCHLORPERAZINE 10 MG/2 ML VIAL. ONE (09:32)
[2020-08-27] MEDS ORDERED: fentaNYL PF VIAL 100 MCG/2 ML VIAL IV PRN ×2 (09:45)
[2020-08-27] MEDS ORDERED: ONDANSETRON PF 4 MG/2 ML VIAL. IV PRN (09:45)
[2020-08-27] MEDS ORDERED: LIDOCAINE 1% PF 2 ML VIAL. ID PRN (09:45)
[2020-08-27] MEDS ORDERED: PROCHLORPERAZINE 10 MG/2 ML VIAL. IV PRN (09:45)
[2020-08-27] MEDS ORDERED: MORPHINE SULFATE 2 MG/ML VIAL. IV PRN (09:45)
[2020-08-27] MEDS ORDERED: fentaNYL PF VIAL 100 MCG/2 ML VIAL IVP PRN (09:45)
[2020-08-27] MEDS ORDERED: HYDROmorphone 2 MG/ML VIAL ONE (09:54)
[2020-08-27] MEDS: HYDROmorphone 2 MG/ML VIAL IV PRN ×2 (09:56→10:05)
[2020-08-27 10:07] VITALS: BP 86/49
== END 2020-08-27 10:37 | disposition home or self-care (01) ==
LOC: SDC 06:34 → SURG 10:37
PROVIDERS: ATTEND Obstetrics & Gynecology
DX: Z11.59 Encounter for screening for other viral diseases (principal); Z20.828 Contact with and (suspected) exposure to other viral communicable diseases; Z90.49 Acquired absence of other specified parts of digestive tract; Z98.890 Other specified postprocedural states; Z87.891 Personal history of nicotine dependence; Z79.899 Other long term (current) drug therapy
CPT/HCPCS: 81025; J1100; J1170; J1885; J2250; J2270; J2405; J2704; J2710; J3010; J3490; J7120; C9803; U0003